=== PATIENT | female | born 1965 | race Two or more races ===

== ENCOUNTER 2021-08-22 18:33 | Emergency (ER) | payer OTHER ==
[~2021-08-22] VITALS: Ht 154.9 cm; Wt 104.3 kg
[2021-08-22] MEDS ORDERED: METFORMIN HCL500 MG (19:12)
[2021-08-22] MEDS ORDERED: AZELASTINE137 MCG/0. NASAL (19:12)
[2021-08-22] MEDS ORDERED: FLONASE16 GM NS (19:12)
[2021-08-22] MEDS ORDERED: ALLEGRA-D 24 H1 EACH PO (19:13)
[2021-08-22] MEDS ORDERED: OMEPRAZOLE-BIC1 EAC1 PO (19:13)
[2021-08-22] MEDS ORDERED: ORAPRED ODT10 MG PO (19:14)
[2021-08-22] MEDS ORDERED: BACTRIM DS TAB1 EACH PO (19:14)
[2021-08-22] MEDS ORDERED: ALBUTEROL1.25 MG/3 IH (23:36)
[2021-08-22] MEDS ORDERED: SYMBICORT 16010.2 GM IH (23:36)
== END 2021-08-23 00:09 | disposition home or self-care (01) ==
LOC: ER 18:33
DX: J45.901 Unspecified asthma with (acute) exacerbation (principal)